=== PATIENT | male | born 2000 | race African-American/Black ===

== ENCOUNTER 2024-05-07 13:05 | Emergency (ER) | payer OTHER ==
[~2024-05-07] VITALS: Ht 188 cm; Wt 85.2 kg
[2024-05-07 14:33] VITALS: BP 141/70; TEMP 97.4; O2SAT 100
== END 2024-05-07 14:34 | disposition home or self-care (01) ==
LOC: M ED 13:05
DX: S60.221A Contusion of right hand, initial encounter (principal); Y92.9 Unspecified place or not applicable; Y93.9 Activity, unspecified; Y99.9 Unspecified external cause status

== ENCOUNTER → 2025-09-24 | Outpatient (CLI) | payer OTHER | LOC: M CARPUL 13:41 | PROVIDERS: ATTEND Student in an Organized Health Care Education/Training Program | DX: R06.02 Shortness of breath (principal) ==